=== PATIENT | female | born 1985 | race Two or more races ===

== ENCOUNTER 2017-12-25 13:04 | Emergency (ER) | payer SELFPAY, MEDICAID ==
[2017-12-25] MEDS: NS 1,000 ML IV (14:33)
[2017-12-25] MEDS: METOCLOPRAMIDE INJ 10MG/2ML VIAL (J2765) IV (14:34)
[2017-12-25] MEDS: KETOROLAC 30 MG/ML VIAL (J1885) IV (14:34)
[2017-12-25 14:41] LABS: BASO % 0.5 % (0.0-1.0); EOS % 0.1 % (0.0-3.0); HEMATOCRIT 37.9 % (36.0-47.0); HEMOGLOBIN 11.9 g/dl (12.0-15.5); IMMATURE GRANULOCYTE % 0.1 % (0-3.0); LYMPH # 2.3 10^3/uL (1.5-4.5); LYMPH % 29.3 % (24.0-44.0); MEAN CORPUSCULAR HGB CONC 31.4 g/dl (32.0-36.5); MEAN CORPUSCULAR VOLUME 92.2 fl (80.0-96.0); MONO # 0.4 10^3/uL (0.0-0.8); PLATELET COUNT, AUTOMATED 177 10^3/uL (150-450); RED BLOOD COUNT 4.11 10^6/uL (4.00-5.40); RED CELL DISTRIBUTION WIDTH 12.1 % (11.5-14.5); WHITE BLOOD COUNT 7.8 10^3/uL (4.0-10.0)
[2017-12-25 14:58] LABS: PARTIAL THROMBOPLASTIN TIME 29.2 SECONDS (25.4-37.6); PROTHROMBIN TIME 13.3 SECONDS (12.1-14.4)
[2017-12-25 14:59] LABS: KETONE, URINE AUTO RFX NEGATIVE (NEGATIVE); MUCUS, URINE RFX SMALL (NEGATIVE); NITRITE, URINE AUTO RFX NEGATIVE (NEGATIVE); RBC, URINE AUTO RFX 2 /HPF (0-3); SPECIFIC GRAVITY UR AUTO RFX 1.008 (1.002-1.035); SQUAM EPITHELIAL CELL UR AURFX 0 /HPF (0-6)
[2017-12-25 15:02] LABS: ANION GAP 6 MEQ/L (8-16); BLOOD UREA NITROGEN 10 MG/DL (7-18); CALCIUM LEVEL 8.6 MG/DL (8.5-10.1); CARBON DIOXIDE LEVEL 30 MEQ/L (21-32); CHLORIDE LEVEL 106 MEQ/L (98-107); CREATININE FOR GFR 0.65 MG/DL (0.55-1.30); GLOMERULAR FILTRATION RATE > 60.0 (>60); GLUCOSE, FASTING 76 MG/DL (70-100); LEUKOCYTE ESTERASE UR AUTO RFX TRACE (NEGATIVE); MAGNESIUM LEVEL 1.7 MG/DL (1.8-2.4); SODIUM LEVEL 142 MEQ/L (136-145); WBC, URINE AUTO RFX 18 /HPF (0-3)
== END 2017-12-25 16:37 | disposition home or self-care (01) ==
LOC: M ED 13:04
DX: R20.2 Paresthesia of skin (principal); R51 Headache; M41.9 Scoliosis, unspecified; Z86.73 Personal history of transient ischemic attack (TIA), and cerebral infarction without residual deficits; Z88.0 Allergy status to penicillin
CPT/HCPCS: J1885

== ENCOUNTER 2018-03-24 17:12 | Emergency (ER) | payer MEDICAID, SELFPAY ==
[~2018-03-24] VITALS: Ht 147.3 cm; Wt 68.2 kg
[~2018-03-24 17:12] MED LIST: BACT800T5 PO
--- NOTE | 2018-03-24 17:56 | REP ---
REASON: Pain after trauma. Attention 2nd digit. Four views were obtained. PRIORS: None. FINDINGS: No acute fracture or destructive osseous lesion. Electronically Signed by Phi Soto DO 03/24/2018 06:02 P
[2018-03-24 18:45] VITALS: BP 100/54
== END 2018-03-24 18:47 | disposition home or self-care (01) ==
LOC: M ED 17:12
DX: S61.210A Laceration without foreign body of right index finger without damage to nail, initial encounter (principal); W23.0XXA Caught, crushed, jammed, or pinched between moving objects, initial encounter; Y92.9 Unspecified place or not applicable; Y93.89 Activity, other specified; Y99.9 Unspecified external cause status; Z72.0 Tobacco use; Z88.0 Allergy status to penicillin

== ENCOUNTER 2018-06-23 20:46 | Emergency (ER) | payer MEDICAID ==
[~2018-06-23] VITALS: Ht 144.8 cm; Wt 68.2 kg
[2018-06-23] MEDS ORDERED: IBUP-1114 PO (21:04)
[2018-06-23 23:10] LABS: BASO % 0.5 % (0.0-1.0); EOS # 0.1 10^3/uL (0.0-0.50); EOS % 0.8 % (0.0-3.0); HEMATOCRIT 37.6 % (36.0-47.0); HEMOGLOBIN 11.9 g/dl (12.0-15.5); LYMPH # 2.8 10^3/uL (1.5-4.5); LYMPH % 35.6 % (24.0-44.0); MEAN CORPUSCULAR HEMOGLOBIN 29.2 pg (27.0-33.0); MEAN CORPUSCULAR HGB CONC 31.6 g/dl (32.0-36.5); MEAN CORPUSCULAR VOLUME 92.4 fl (80.0-96.0); MONO # 0.5 10^3/uL (0.0-0.8); MONO % 6.7 % (0.0-5.0); NEUTROPHILS # 4.4 10^3/uL (1.8-7.7); PLATELET COUNT, AUTOMATED 230 10^3/uL (150-450); RED BLOOD COUNT 4.07 10^6/uL (4.00-5.40); WHITE BLOOD COUNT 7.8 10^3/uL (4.0-10.0)
[2018-06-23] MEDS ORDERED: KETOROLAC 60 MG/2 ML VIAL (J1885) IM ONE (23:30)
[2018-06-23 23:33] LABS: BLOOD UREA NITROGEN 16 MG/DL (7-18); CALCIUM LEVEL 8.5 MG/DL (8.5-10.1); CARBON DIOXIDE LEVEL 31 MEQ/L (21-32); CHLORIDE LEVEL 106 MEQ/L (98-107); CPK CREATINE PHOSPHOKINASE 36 U/L (26-192); CREATININE FOR GFR 0.56 MG/DL (0.55-1.30); GLOMERULAR FILTRATION RATE > 60.0 (>60); GLUCOSE, FASTING 92 MG/DL (70-100); POTASSIUM SERUM 4.3 MEQ/L (3.5-5.1); SODIUM LEVEL 139 MEQ/L (136-145)
[2018-06-23 23:40] LABS: HCG, SERUM QUALITATIVE NEGATIVE (NEGATIVE)
[2018-06-24] MEDS ORDERED: NAPR-837 PO (00:25)
[2018-06-24] MEDS ORDERED: CYCL10TA PO (00:25)
[2018-06-24] MEDS ORDERED: CYCLOBENZAPRINE 10 MG TAB PO ONE (00:30)
[2018-06-24 00:38] VITALS: BP 115/77
--- NOTE | 2018-06-24 09:11 | REP ---
Vertical spine series: Four views. History: Pain after running. Popping sensation. History of scoliosis. No comparison cervical spine imaging. Findings: Swimmers lateral, lateral, and AP radiographs of the cervical spine demonstrate a moderate to severe upper thoracic scoliotic curvature which is dextroconvex. There is a levoconvex curvature at the cervical thoracic junction. In addition, there is a structural vertebral anomaly at the cervicothoracic junction which appears to be a left-sided block vertebra at C7-T1. CT scan would provide better delineation of this if desired. There is no acute skeletal abnormality. On lateral radiographs, cervical vertebral body heights are preserved. Alignment is normal. No fracture or collapse is seen. There is some disc space narrowing at C-06/07 and C 7-T1 on the lateral views. Prevertebral soft tissues are unremarkable. Impression: Significant cervical thoracic scoliosis. 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 CT scanning may provide additional information if desired. No acute abnormalities seen. Electronically Signed by Braden Alejo MD 06/24/2018 09:02 A
== END 2018-06-24 00:39 | disposition home or self-care (01) ==
LOC: M ED 20:46
DX: M50.30 Other cervical disc degeneration, unspecified cervical region (principal); M25.50 Pain in unspecified joint; M41.9 Scoliosis, unspecified; Z88.0 Allergy status to penicillin; Z87.891 Personal history of nicotine dependence
CPT/HCPCS: 36415; 72040; 80048; 82550; 84703; 85025; 96372; 99283; J1885

== ENCOUNTER → 2018-07-13 | Outpatient (REF) | payer OTHER ==
[~2018-07-13] MED LIST changes: +CYCL10TA PO; +IBUP-1114 PO; +NAPR-837 PO
[2018-07-13 18:02] LABS: BASO # 0.1 10^3/uL (0.0-0.2); BASO % 0.5 % (0.0-1.0); EOS % 0.3 % (0.0-3.0); HEMOGLOBIN 11.7 g/dl (12.0-15.5); LYMPH # 1.8 10^3/uL (1.5-4.5); LYMPH % 18.5 % (24.0-44.0); MEAN CORPUSCULAR HGB CONC 31.6 g/dl (32.0-36.5); MEAN CORPUSCULAR VOLUME 91.6 fl (80.0-96.0); MONO # 0.5 10^3/uL (0.0-0.8); MONO % 4.8 % (0.0-5.0); NEUTROPHILS # 7.4 10^3/uL (1.8-7.7); NEUTROPHILS % 75.6 % (36.0-66.0); PLATELET COUNT, AUTOMATED 240 10^3/uL (150-450); RED BLOOD COUNT 4.04 10^6/uL (4.00-5.40); WHITE BLOOD COUNT 9.8 10^3/uL (4.0-10.0)
[2018-07-13 18:20] LABS: HEMOGLOBIN A1c 4.9 %
[2018-07-13 18:23] LABS: ALBUMIN 4.4 GM/DL (3.2-5.2); ALT/SGPT 15 U/L (12-78); BILIRUBIN,TOTAL 0.7 MG/DL (0.2-1.0); BLOOD UREA NITROGEN 11 MG/DL (7-18); CALCIUM LEVEL 8.9 MG/DL (8.5-10.1); CARBON DIOXIDE LEVEL 28 MEQ/L (21-32); CHLORIDE LEVEL 106 MEQ/L (98-107); CHOLESTEROL LEVEL 161 MG/DL (<200); CHOLESTEROL RISK RATIO 3.285 (<5); CREATININE FOR GFR 0.69 MG/DL (0.55-1.30); FREE T4 1.19 NG/DL (0.76-1.46); GLOMERULAR FILTRATION RATE > 60.0 (>60); GLUCOSE, FASTING 79 MG/DL (70-100); HDL CHOLESTEROL 49 MG/DL (>40); LDL CHOLESTEROL 95 MG/DL (<100); NON-HDL-C 112 MG/DL; POTASSIUM SERUM 3.6 MEQ/L (3.5-5.1); SODIUM LEVEL 140 MEQ/L (136-145); THYROID STIMULATING HORMONE 0.448 uIU/ML (0.358-3.740); TOTAL PROTEIN 7.7 GM/DL (6.4-8.2); TRIGLYCERIDES LEVEL 87 MG/DL (<150)
[2018-07-13 18:25] LABS: PTH INTACT 49.6 PG/ML (18.5-88.0)
== END ==
LOC: M SFHCPLAZ 15:06
PROVIDERS: ATTEND Nurse Practitioner Family
DX: Z13.228 Encounter for screening for other metabolic disorders (principal); E55.9 Vitamin D deficiency, unspecified

== ENCOUNTER → 2018-07-20 | Outpatient (CLI) | payer OTHER ==
--- NOTE | 2018-07-20 15:32 | REP ---
CT cervical spine without contrast HISTORY: Cervicothoracic scoliosis COMPARISON: None There is no acute fracture or subluxation. 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 There is fusion of the C6 and C7 spinous processes. There is spina bifida occulta at this level. 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 There is fusion of the C7 and T1 vertebral bodies. There is no disc bulge or herniation. A small posterior osteophyte is present at the C5 level. There is no disc bulge or herniation. The spinal canal and the neural foramina are patent. There is scoliosis of the lower cervical and upper thoracic spine convex to the left. IMPRESSION: 1. There is no acute fracture or subluxation. 2. Congenital anomaly as described above. Electronically Signed by Leonardo Salazar MD 07/20/2018 03:23 P
== END ==
LOC: M RAD 14:57
PROVIDERS: ATTEND Nurse Practitioner Family
DX: M41.83 Other forms of scoliosis, cervicothoracic region (principal); M25.78 Osteophyte, vertebrae; Z98.1 Arthrodesis status

== ENCOUNTER → 2018-07-29 | Outpatient (REF) | payer OTHER ==
[2018-08-03 14:10] LABS: HPV HYBRID CAPTURE II Negative (Negative)
== END ==
LOC: M SFHCPLAZ 17:57
PROVIDERS: ATTEND Nurse Practitioner Family
DX: Z12.4 Encounter for screening for malignant neoplasm of cervix (principal)

== ENCOUNTER 2018-08-17 13:46 | Emergency (ER) | payer OTHER ==
[~2018-08-17] VITALS: Ht 147.3 cm; Wt 68.2 kg
[2018-08-17] MEDS ORDERED: METH1TAB40 PO (13:53)
[2018-08-17] MEDS ORDERED: GABA-1171 PO (13:53)
[2018-08-17] MEDS ORDERED: GI COCKTAIL 50ML BTL(HYOSCYAMINE/MAALOX/LIDOCAINE VISCOUS)(1:3:1) PO ONE (16:45)
[2018-08-17 17:14] LABS: BASO # 0.1 10^3/uL (0.0-0.2); BASO % 0.6 % (0.0-1.0); EOS % 0.3 % (0.0-3.0); HEMOGLOBIN 12.9 g/dl (12.0-15.5); LYMPH # 2.2 10^3/uL (1.5-4.5); LYMPH % 24.3 % (24.0-44.0); MEAN CORPUSCULAR HEMOGLOBIN 29.9 pg (27.0-33.0); MEAN CORPUSCULAR HGB CONC 32.3 g/dl (32.0-36.5); MEAN CORPUSCULAR VOLUME 92.6 fl (80.0-96.0); MONO # 0.5 10^3/uL (0.0-0.8); MONO % 5.2 % (0.0-5.0); NEUTROPHILS # 6.2 10^3/uL (1.8-7.7); NEUTROPHILS % 69.4 % (36.0-66.0); PLATELET COUNT, AUTOMATED 209 10^3/uL (150-450); RED BLOOD COUNT 4.32 10^6/uL (4.00-5.40); WHITE BLOOD COUNT 8.9 10^3/uL (4.0-10.0)
[2018-08-17 17:30] LABS: ALBUMIN 3.8 GM/DL (3.2-5.2); ALT/SGPT 21 U/L (12-78); BILIRUBIN,DIRECT 0.1 MG/DL (0.0-0.2); BILIRUBIN,TOTAL 0.6 MG/DL (0.2-1.0); BLOOD UREA NITROGEN 12 MG/DL (7-18); CALCIUM LEVEL 8.5 MG/DL (8.5-10.1); CARBON DIOXIDE LEVEL 31 MEQ/L (21-32); CHLORIDE LEVEL 101 MEQ/L (98-107); CREATININE FOR GFR 0.61 MG/DL (0.55-1.30); GLOMERULAR FILTRATION RATE > 60.0 (>60); GLUCOSE, FASTING 99 MG/DL (70-100); LIPASE 77 U/L (73-393); POTASSIUM SERUM 4.1 MEQ/L (3.5-5.1); SODIUM LEVEL 138 MEQ/L (136-145); TOTAL PROTEIN 7.5 GM/DL (6.4-8.2)
--- NOTE | 2018-08-17 17:42 | REP ---
Clinical: Left-sided abdominal pain. Technique: Upright view of the chest with supine and upright views of the abdomen and pelvis. Findings: Scoliosis is appreciated through the thoracolumbar spine. Frontal upright view of the chest demonstrates no acute cardiopulmonary process or free air below the diaphragm to suspect pneumoperitoneum. Supine and upright views of the abdomen and pelvis demonstrate nonspecific bowel gas pattern without obstruction or perforation. No organomegaly. No abnormal calcifications. Skeletal structures normal for age. Impression: Nonspecific bowel gas pattern. Electronically Signed by Martir Mayfield MD 08/17/2018 05:34 P
[2018-08-17] MEDS ORDERED: PROTPAK PO (17:46)
[2018-08-17] MEDS ORDERED: MIRA3350 PO (17:46)
[2018-08-17 17:54] VITALS: BP 111/52
== END 2018-08-17 17:59 | disposition home or self-care (01) ==
LOC: M ED 13:46
DX: K59.00 Constipation, unspecified (principal); R10.13 Epigastric pain; M54.9 Dorsalgia, unspecified; R51 Headache; G89.29 Other chronic pain; Z88.0 Allergy status to penicillin; Z79.899 Other long term (current) drug therapy

== ENCOUNTER → 2018-08-19 | Outpatient (RCR) | payer OTHER ==
[~2018-08-19] MED LIST changes: +GABA-1171 PO; +METH1TAB40 PO; +MIRA3350 PO; +PROTPAK PO
== END ==
LOC: M PT 07-27 14:32
PROVIDERS: ATTEND Nurse Practitioner Family
DX: M41.9 Scoliosis, unspecified (principal)

== ENCOUNTER 2018-09-02 13:18 | Outpatient (RCR) | payer OTHER | END 2018-09-18 | LOC: M PT 13:18 | PROVIDERS: ATTEND Nurse Practitioner Family | DX: M41.9 Scoliosis, unspecified (principal) ==

== ENCOUNTER 2018-09-28 10:45 | Outpatient (RCR) | payer OTHER | END 2018-10-19 | LOC: M PT 10:45 | PROVIDERS: ATTEND Nurse Practitioner Family | DX: Z51.89 Encounter for other specified aftercare (principal); M41.9 Scoliosis, unspecified ==

== ENCOUNTER 2018-11-17 10:40 | Outpatient (RCR) | payer OTHER | END 2018-11-19 | LOC: M PT 10:40 | PROVIDERS: ATTEND Nurse Practitioner Family | DX: Z47.89 Encounter for other orthopedic aftercare (principal); M47.812 Spondylosis without myelopathy or radiculopathy, cervical region; Q76.0 Spina bifida occulta; M50.31 Other cervical disc degeneration, high cervical region; M41.22 Other idiopathic scoliosis, cervical region; M41.24 Other idiopathic scoliosis, thoracic region ==

== ENCOUNTER → 2019-02-01 | Outpatient (CLI) | payer OTHER ==
[2019-02-01 13:34] LABS: BLOOD UREA NITROGEN 13 MG/DL (7-18); C REACTIVE PROTEIN QUANTITATIV 0.34 MG/DL (0.00-0.30); CREATININE FOR GFR 0.71 MG/DL (0.55-1.30); GLOMERULAR FILTRATION RATE > 60.0 (>60); RHEUMATOID FACTOR QUANT < 10.0 IU/ML (<15.0)
[2019-02-08 00:06] LABS: ANTINUCLEAR ANTIBODIES DIRECT Negative (Negative); HLA-B27 Negative (.)
== END ==
LOC: M LAB 12:08
PROVIDERS: ATTEND Physician Assistant
DX: M47.812 Spondylosis without myelopathy or radiculopathy, cervical region (principal)